=== PATIENT | female | born 1970 | race Caucasian/White ===

== ENCOUNTER 2017-06-16 03:34 | Emergency (ER) | payer SELFPAY ==
[~2017-06-16] VITALS: Ht 167.6 cm; Wt 88.6 kg
[~2017-06-16 03:34] MED LIST: BUDEPRION XL300 MG PO; CATAPRES 0.1MG0.1 MG PO; KLONOPIN 0.5MG0.5 MG PO; LAMICTAL 25MG T25 MG PO; LEVAQUIN 5500 MG/TA1 PO; MOTRIN 800800 MG/TAB PO; NEURONTIN300 MG/CAP PO; PERCOCET 325 MG1 TA2 PO; PROMETHAZINE12.5 M5 PO; SYNTHROID 0.10.15 MG PO; ZOLOFT 100MG100 MG PO; ZOLOFT 50MG50 MG PO
[2017-06-16 03:36] VITALS: TEMP 97.8
[2017-06-16] MEDS ORDERED: AMOXICILLIN 50500 MG PO (04:01)
[2017-06-16] MEDS ORDERED: NORCO 325 MG-51 TAB PO (04:01)
[2017-06-16] MEDS ORDERED: CLEOCIN HCL300 MG PO (04:01)
[2017-06-16 04:38] VITALS: BP 125/93; PULSE 83
== END 2017-06-16 04:40 | disposition home or self-care (01) ==
LOC: COL.ER 03:34
DX: K08.89 Other specified disorders of teeth and supporting structures (principal); K03.81 Cracked tooth; E03.9 Hypothyroidism, unspecified

== ENCOUNTER → 2018-12-14 | Outpatient (CLI) | payer SELFPAY ==
[~2018-12-14] MED LIST changes: +AMOXICILLIN 50500 MG PO; +CLEOCIN HCL300 MG PO; +NORCO 325 MG-51 TAB PO
[2018-12-14 16:22] LABS: INR 2.6 (0.8-3.0); PROTHROMBIN TIME 29.7 SECONDS (9.7-12.8)
== END ==
LOC: COL.LAB 15:49
DX: I63.9 Cerebral infarction, unspecified (principal)

== ENCOUNTER 2018-12-22 15:35 | Emergency (ER) | payer SELFPAY ==
[~2018-12-22] VITALS: Ht 165.1 cm; Wt 90.9 kg
[~2018-12-22 15:35] MED LIST changes: -COUMADIN 5MG5 MG/TAB PO; -COUMADIN 77.5 MG/TAB PO; -FLEXERIL5 MG PO; -LIPITOR 40MG TA40 MG PO; -PROTONIX 40MG T40 MG PO; -TYLENOL 500MG500 MG PO
[2018-12-22 15:40] VITALS: BP 134/78; TEMP 97.8
[2018-12-22] MEDS ORDERED: TYLENOL 500MG500 MG PO (15:52)
[2018-12-22] MEDS ORDERED: COUMADIN 5MG5 MG/TAB PO ×2 (15:52→15:53)
[2018-12-22] MEDS ORDERED: COUMADIN 77.5 MG/TAB PO ×2 (15:53→15:54)
[2018-12-22] MEDS ORDERED: LIPITOR 40MG TA40 MG PO (15:54)
[2018-12-22] MEDS ORDERED: PROTONIX 40MG T40 MG PO (15:54)
[2018-12-22] MEDS ORDERED: FLEXERIL5 MG PO (16:15)
[2018-12-22] MEDS ORDERED: NORCO 325 MG-51 TAB PO (16:15)
[2018-12-22 16:24] VITALS: PULSE 93
== END 2018-12-22 16:26 | disposition home or self-care (01) ==
LOC: COL.ER 15:35
DX: M54.41 Lumbago with sciatica, right side (principal); M54.10 Radiculopathy, site unspecified; F17.210 Nicotine dependence, cigarettes, uncomplicated; Z86.73 Personal history of transient ischemic attack (TIA), and cerebral infarction without residual deficits; Z79.01 Long term (current) use of anticoagulants; X50.0XXA Overexertion from strenuous movement or load, initial encounter

== ENCOUNTER → 2018-12-22 | Outpatient (CLI) | payer SELFPAY ==
[~2018-12-22] MED LIST changes: +COUMADIN 5MG5 MG/TAB PO; +COUMADIN 77.5 MG/TAB PO; +FLEXERIL5 MG PO; +LIPITOR 40MG TA40 MG PO; +PROTONIX 40MG T40 MG PO; +TYLENOL 500MG500 MG PO
[2018-12-22 15:50] LABS: INR 1.7 (0.8-3.0); PROTHROMBIN TIME 18.9 SECONDS (9.7-12.8)
== END ==
LOC: COL.LAB 15:05
PROVIDERS: Physician Assistant
DX: I63.9 Cerebral infarction, unspecified (principal)

== ENCOUNTER 2019-10-14 18:59 | Emergency (ER) | payer BC ==
[~2019-10-14] VITALS: Ht 167.6 cm; Wt 97.3 kg
[~2019-10-14 18:59] MED LIST changes: +COUMADIN 5MG5 MG/TAB PO; +COUMADIN 77.5 MG/TAB PO; +FLEXERIL5 MG PO; +LIPITOR 40MG TA40 MG PO; +PROTONIX 40MG T40 MG PO; +TYLENOL 500MG500 MG PO
[2019-10-14 19:12] VITALS: TEMP 98.9
[2019-10-14] MEDS ORDERED: PRILOTC PO (20:19)
[2019-10-14] MEDS ORDERED: LEVOXYL0.175 MG PO (20:20)
[2019-10-14 20:58] LABS: BASO # 0.1 (0.0-0.2); BASO % 0.6 % (0.0-2.0); EOS # 0.3 (0.0-0.7); GRAN # 4.9 (1.4-6.5); GRAN % 51.9 % (42.2-75.2); HEMATOCRIT 37.2 % (37.0-47.0); HEMOGLOBIN 12.7 g/dl (12.5-16.0); LYMPH # 3.5 (1.2-3.4); LYMPH % 37.4 % (20.0-51.0); MEAN CELL VOLUME 95 fl (80.0-100.0); MEAN CORPUSCULAR HEMOGLOBIN 32 pg (27.0-31.0); MEAN CORPUSCULAR HGB CONC 34 g/dl (33.0-37.0); MEAN PLATELET VOLUME 10.4 fl (7.4-10.4); MONO # 0.6 (0.1-0.6); MONO % 6.8 % (1.7-9.3); PLATELET COUNT 330 K/mm3 (130-400); RED BLOOD COUNT 3.93 M/mm3 (4.10-5.30); REDCELL DISTRIBUTION WIDTH-CV 12.6 % (11.5-14.5)
[2019-10-14 21:12] LABS: ALANINE AMINOTRANSFERASE 13 U/L (9-52); ALBUMIN 3.9 gm/dL (3.5-5.0); ALKALINE PHOSPHATASE 70 U/L (50-136); ANION GAP 7 mmol/L (7-16); AST,SGOT 16 U/L (15-37); BILIRUBIN,TOTAL 0.2 mg/dL (0.0-1.0); BLOOD UREA NITROGEN 10 mg/dL (7-17); CARBON DIOXIDE 23 mmol/L (22-30); CHLORIDE 108 mmol/L (98-107); CREATININE, serum 0.81 (0.52-1.25); GLUCOSE 101 mg/dL (74-106); POTASSIUM 3.4 mmol/L (3.4-5.0); SODIUM 138 mmol/L (137-145)
[2019-10-14 21:17] LABS: C-REACTIVE PROTEIN < 0.5 mg/dL (0.0-0.9)
[2019-10-14 21:23] LABS: TROPONIN-I < 0.012 ng/mL (0.000-0.035)
[2019-10-14] MEDS ORDERED: TOPROL XL 25MG25 MG PO (22:20)
[2019-10-14] MEDS ORDERED: PROTONIX 40MG T40 MG PO (22:20)
[2019-10-14 23:30] VITALS: BP 98/64; PULSE 67
== END 2019-10-14 23:51 | disposition home or self-care (01) ==
LOC: COL.ER 18:59
PROVIDERS: Emergency Medicine
DX: R00.2 Palpitations (principal); F17.210 Nicotine dependence, cigarettes, uncomplicated; K21.9 Gastro-esophageal reflux disease without esophagitis; Z86.73 Personal history of transient ischemic attack (TIA), and cerebral infarction without residual deficits

== ENCOUNTER → 2019-11-22 | Outpatient (CLI) | payer BC ==
[~2019-11-22] MED LIST changes: +LEVOXYL0.175 MG PO; +PRILOTC PO; +TOPROL XL 25MG25 MG PO
== END ==
LOC: COL.LAB 17:05
DX: E03.9 Hypothyroidism, unspecified (principal)

== ENCOUNTER 2020-01-07 13:03 | Emergency (ER) | payer BC ==
[~2020-01-07] VITALS: Ht 165.1 cm; Wt 103.7 kg
[2020-01-07 13:05] VITALS: TEMP 98.2
[2020-01-07] MEDS ORDERED: LEVOXYL0.175 MG PO (13:18)
[2020-01-07] MEDS ORDERED: TOPROL XL 25MG25 MG PO (13:18)
[2020-01-07] MEDS ORDERED: PROTONIX 40MG T40 MG PO (13:19)
[2020-01-07] MEDS ORDERED: LEVAQUIN 5500 MG/TA1 PO (14:31)
[2020-01-07 14:40] VITALS: BP 123/84; PULSE 62
== END 2020-01-07 14:40 | disposition home or self-care (01) ==
LOC: COL.ER 13:03
DX: J18.9 Pneumonia, unspecified organism (principal); R51 Headache; K21.9 Gastro-esophageal reflux disease without esophagitis; I10 Essential (primary) hypertension
CPT/HCPCS: J1885; J2550